=== PATIENT | male | born 1980 | race Two or more races ===

== ENCOUNTER 2020-09-11 16:50 | Emergency (ER) | payer MEDICAID ==
[~2020-09-11] VITALS: Ht 175.3 cm; Wt 79.7 kg
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
--- NOTE | 2020-09-11 18:34 | NUR ---
PATIENT SITTING IN AUREA BAKER, CALL LIGHT WITHIN REACH. WAITING FOR PROVIDER ORDERS.
[2020-09-11] MEDS ORDERED: LIDOCAINE-MPF 1%, 5ML ONE (19:15)
--- NOTE | 2020-09-11 19:56 | NUR ---
Lac numbed by provider. Hand lavaged with soap and water. Pt ready for suture.
[2020-09-11] MEDS ORDERED: DIPH,PERTUSS(ACELL),TET VAC/PF 0.5 ML IM-VACC ONE ×2 (21:00→21:27)
[2020-09-11] MEDS ORDERED: NEOSPORIN OINT. PKT 1 PACKET ONE (21:17)
[2020-09-11] MEDS ORDERED: ACETAMINOPHEN 325 MG TABLET PO ONE (21:30)
[2020-09-11 21:32] VITALS: BP 138/88
--- NOTE | 2020-09-11 21:33 | NUR ---
Patient/Caregiver given discharge instructions and they have confirmed that they understand the instructions. Patient ambulatory with steady gait. Wound dressed by tech. Pt medicated for tetanus. Pt refused tylenol stating he just took some from his .
== END 2020-09-11 21:35 | disposition home or self-care (01) ==
LOC: ED 17:56
DX: S61.412A Laceration without foreign body of left hand, initial encounter (principal); X58.XXXA Exposure to other specified factors, initial encounter; Y93.89 Activity, other specified; Y92.89 Other specified places as the place of occurrence of the external cause; Y99.8 Other external cause status
CPT/HCPCS: 12042; 90471; 90715; 99284